=== PATIENT | female | born 1965 | race Caucasian/White ===

== ENCOUNTER → 2017-02-09 | Outpatient (CLI) | payer BC ==
[2017-02-13 17:04] LABS: HPV 16 Not Detected (NOTDET); HPV 18 Not Detected (NOTDET)
== END ==
LOC: MW.CHOBGYN 16:03
PROVIDERS: ATTEND Nurse Practitioner Women's Health
DX: Z12.4 Encounter for screening for malignant neoplasm of cervix (principal); R82.90 Unspecified abnormal findings in urine
CPT/HCPCS: 36415; 81001; 83001; 84443; 87624; G0145

== ENCOUNTER → 2017-02-10 | Outpatient (CLI) | payer BC | LOC: MW.CHOBGYN 09:03 | PROVIDERS: ATTEND Nurse Practitioner Women's Health | DX: N91.1 Secondary amenorrhea (principal) | CPT/HCPCS: 36415; 83002; 84146 ==

== ENCOUNTER → 2017-02-18 | Outpatient (CLI) | payer BC ==
--- NOTE | 2017-02-18 14:28 | US ---
EXAMINATION: Transvaginal pelvic ultrasound. HISTORY: Amenorrhea COMPARISON: None TECHNIQUE: Grayscale, color Doppler, spectral Doppler images obtained transvaginally. FINDINGS: The uterus appears normal in size, contour, and echogenicity without a focal uterine mass. Endometrial stripe thickness measures 9 mm, correlate for postmenopausal state. Both the left and right ovaries are normal in size, contour, and echogenicity demonstrating normal c olor and spectral Doppler flow. As a 2 cm cyst noted within the left ovary. No significant free pelv ic fluid. IMPRESSION: 1. Grossly unremarkable transvaginal pelvic ultrasound.
--- NOTE | 2017-02-18 16:08 | MY ---
EXAMINATION: Bilateral digital mammography utilizing CAD. HISTORY: Screening exam. Baseline. FINDINGS: Bilateral heterogeneously dense breast tissue. No suspicious calcifications, masses or architectural distortions. No pathologic appearing lymph nodes, no abnormal skin thickening or nip ple inversion. CAD highlighted regions appear normal at this time. IMPRESSION: BI-RADS category I - negative mammogram. Continued screening according to ACR-ACS gu idelines suggested. THE FALSE-NEGATIVE RATE OF MAMMOGRAM IS APPROXIMATELY 10%. MANAGEMENT OF A PALPABLE ABNORMALITY MUST BE BASED UPON CLINICAL GROUNDS. SENSITIVITY FOR DETECTION OF ABNORMALITIES IN DENSE BREASTS IS LOW. NOTE: A letter will be sent to the patient regarding findings. [facility] -- [place] [phone] - FAX [phone]
== END ==
LOC: MW.MAM 09:17
PROVIDERS: ATTEND Nurse Practitioner Women's Health
DX: Z12.31 Encounter for screening mammogram for malignant neoplasm of breast (principal); N91.1 Secondary amenorrhea
CPT/HCPCS: 76830; G0202

== ENCOUNTER → 2017-04-17 | Outpatient (CLI) | payer BC | LOC: MW.CHFP 08:36 | PROVIDERS: ATTEND Emergency Medicine | DX: R39.9 Unspecified symptoms and signs involving the genitourinary system (principal) | CPT/HCPCS: 81001; 87086 ==

== ENCOUNTER 2017-06-28 04:57 | Emergency (ER) | payer BC ==
[2017-06-28] MEDS ORDERED: Proparacaine 0.5% Ophth Soln 15 ML Bottle EYERT ONE (05:05)
--- NOTE | 2017-06-28 05:30 | EDM.PDOC ---
ED HPI GENERAL MEDICAL PROBLEM - General Chief Complaint: General Stated Complaint: RIGHT EYE PAIN Time Seen by Provider: 06/28/17 05:02 - History of Present Illness INITIAL COMMENTS - FREE TEXT/NARRATIVE: HISTORY AND PHYSICAL: History of present illness: The patient is a 51-year-old female who wears corrective lenses but not contact lenses and presents tonight after stating that at approximately 11 PM last evening, 6 hours ago, she was with her dog and the dog stretched its paws out and the rough part of the pad of the paw rubbed onto her right eye causing injury. Initially the patient had no tearing or drainage and she rinsed the eye out with water and it seemed to be okay so she went to sleep. She will this morning with severe pain and redness to the right eye and blurred vision. She has photophobia and there is no other injuries to the face no headache no nausea no vomiting. She denies any pain in the facial bones and has no other systemic complaints. Patient says she had a formal eye exam just a few months ago for her glasses. Please note that the patient never had any bleeding from her eye or any gross drainage other than clear tears. Review of systems: As per history of present illness and below otherwise all systems reviewed and negative. Past medical history: As per history of present illness and as reviewed below otherwise noncontributory. Surgical history: As per history of present illness and as reviewed below otherwise noncontributory. Social history: No reported history of drug or alcohol abuse. Family history: As per history of present illness and as reviewed below otherwise noncontributory. Physical exam: Gen.: Well-developed well-nourished female who is nontoxic but looks uncomfortable in the room with light and prefers to keep her right eye closed. Visual acuity is noted by me to be 20/20 in her left eye with correction and 20/ 260 with her right eye with correction. There is no visible facial swelling appreciated HEENT: Atraumatic, normocephalic, pupils reactive, and EOMs are intact, there is no facial bony tenderness or deformities, negative for conjunctival pallor or scleral icterus, mucous membranes moist, throat clear, neck supple, nontender , trachea midline. The right eye is very injected there is no gross drainage and no foreign bodies are appreciated. The conjunctiva are injected as well and there are clear tears. Fundus is difficult to evaluate due to patient's inability to tolerate the light. With fluoroscopy seen stain there is an irregularly-shaped oval corneal abrasion seen at 8 to 9:00 which is on the iris but also impedes on the pupillary area. There is no evidence of any scleral laceration or proptosis Lungs: Clear to auscultation, breath sounds equal bilaterally, chest nontender. Heart: S1S2, regular rate and rhythm no overt murmurs Abdomen: Deferred Pelvis: Deferred Genitourinary: Deferred. Rectal: Deferred. Extremities: Atraumatic, full range of motion. Neurovascular unremarkable. Neuro: Awake, alert, oriented. Cranial nerves II through XII unremarkable. Cerebellum unremarkable. Motor and sensory unremarkable throughout. Exam nonfocal. Diagnostics: Visual acuity with correction left eye 20/20 right eye 20/260, fluoroscopy seen stain Therapeutics: Proparacaine 0527: Case is discussed with her account services manager special education supervisor Dr. Chavez; he feels that that he is not concerned about the visual acuity with the corneal abrasion location. He does recommend antibiotic drops and/or ointment and follow-up with him in the clinic on Thursday. I advised the patient of this conversation and will also give her something for pain for home via [facility]. Impression: Right eye corneal abrasion Definitive disposition and diagnosis as appropriate pending reevaluation and review of above. 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: Psychiatric History: Reports: Anxiety - Infectious Disease History Infectious Disease History: Reports: Chicken Pox - Past Surgical History GI Surgical History: Reports: Cholecystectomy Musculoskeletal Surgical History: Reports: Knee Replacement Social & Family History - Family History Family Medical History: Noncontributory - Tobacco Use Smoking Status *Q: Current Every Day Smoker Years of Tobacco use: 30 Packs/Tins Daily: 0.5 - Caffeine Use Caffeine Use: Reports: Coffee Caffeine Use Comment: 2cups/day - Alcohol Use Days Per Week of Alcohol Use: 0 Number of Drinks Per Day: 0 Total Drinks Per Week: 0 - Recreational Drug Use Recreational Drug Use: No Drug Use in Last 12 Months: No ED ROS GENERAL - Review of Systems Review Of Systems: ROS reveals no pertinent complaints other than HPI. ED EXAM, GENERAL - Physical Exam Exam: See Below (See dictation) Course - Vital Signs Last Recorded V/S: Last Vital Signs Temp 36.1 C 06/28/17 05:01 Pulse 111 H 06/28/17 05:01 Resp 18 06/28/17 05:01 BP 130/71 06/28/17 05:01 Pulse Ox 96 06/28/17 05:01 - Orders/Labs/Meds Orders: Active Orders 24 hr Category Date Time Status Communication Order [RC] STAT Care 06/28/17 05:03 Active Meds: Medications Discontinued Medications Generic Name Dose Route Start Last Admin Trade Name Jaspreet PRN Reason Stop Dose Admin Proparacaine HCl 2 ml 06/28/17 05:05 Proparacaine 0.5% Ophth Soln EYERT 06/28/17 05:06 ONETIME ONE Departure - Departure Time of Disposition: 05:32 Disposition: Home, Self-Care 01 Condition: Good Clinical Impression: Corneal abrasion, right Qualifiers: Encounter type: initial encounter Qualified Code(s): S05.01XA - Injury of conjunctiva and corneal abrasion without foreign body, right eye, initial encounter - Discharge Information Forms: ED Department Discharge Additional Instructions: The following information is given to patients seen in the emergency department who are being discharged to home. This information is to outline your options for follow-up care. We provide all patients seen in our emergency department with a follow-up referral. The need for follow-up, as well as the timing and circumstances, are variable depending upon the specifics of your emergency department visit. If you don't have a primary care physician on staff, we will provide you with a referral. We always advise you to contact your personal physician following an emergency department visit to inform them of the circumstance of the visit and for follow-up with them and/or the need for any referrals to a consulting specialist. The emergency department will also refer you to a specialist when appropriate. This referral assures that you have the opportunity for followup care with a specialist. All of these measure are taken in an effort to provide you with optimal care, which includes your followup. Under all circumstances we always encourage you to contact your private physician who remains a resource for coordinating your care. When calling for followup care, please make the office aware that this follow-up is from your recent emergency room visit. If for any reason you are refused follow-up, please contact the [facility] emergency department at and ask to speak to the emergency department charge nurse. [facility]--ophthalmology department ( Dr Chavez , Dr Stephenson). [facility] [place] [address] Please call and follow-up with the account services manager on Thursday in the clinic as we discussed. Use tramadol that you have been prescribed this evening via [facility] or [id number] medications for the pain.Avoid bright light and rest the eye. Please apply ointment to the eye as directed and return to the ER as needed and as discussed - My Orders Last 24 Hours: My Active Orders 06/28/17 05:03 Communication Order [RC] STAT - Assessment/Plan Last 24 Hours: My Active Orders 06/28/17 05:03 Communication Order [RC] STAT
[2017-06-28] MEDS ORDERED: Tobramycin 0.3% Ophth Oint 3.5 GM Tube EYERT ONE (05:38)
[2017-06-28 06:00] VITALS: BP 108/64
== END 2017-06-28 05:55 | disposition home or self-care (01) ==
LOC: MW.ED 04:57
DX: S05.01XA Injury of conjunctiva and corneal abrasion without foreign body, right eye, initial encounter (principal); F17.210 Nicotine dependence, cigarettes, uncomplicated; Z96.659 Presence of unspecified artificial knee joint; Z88.5 Allergy status to narcotic agent; Z88.0 Allergy status to penicillin; Z90.49 Acquired absence of other specified parts of digestive tract; W54.8XXA Other contact with dog, initial encounter
CPT/HCPCS: 99283; A9270

== ENCOUNTER 2018-01-20 12:20 | Day surgery (SDC) | payer BC ==
[~2018-01-20 12:20] MED LIST: Lactated Ringers 1,000 ML IV SCH; Sodium Chloride 0.9% 10 ML Syringe FLUSH PRN; Sodium Chloride 0.9% 2.5 ML Syringe FLUSH PRN
[2018-01-20] MEDS ORDERED: Lidocaine 2% 5 ML SDV ONE (13:10)
[2018-01-20] MEDS ORDERED: Propofol 200 MG/20 ML SDV ONE ×2 (13:10→14:19)
[2018-01-20] MEDS ORDERED: Midazolam 1 MG/ML 2 ML SDV ONE (13:11)
[2018-01-20] MEDS ORDERED: fentaNYL 100 MCG/2 ML SDV ONE (13:11)
--- NOTE | 2018-01-20 13:18 | PCM.PREANE ---
Preanesthetic Assessment - Anesthesia/Transfusion/Family Hx Anesthesia History: Prior Anesthesia Without Reaction Other Type of Anesthesia Reaction Comment: "sister has hard time waking up" Family History of Anesthesia Reaction: No Transfusion History: No Prior Transfusion(s) Intubation History: Unknown - Review of Systems General: No Symptoms Pulmonary: No Symptoms Cardiovascular: No Symptoms Gastrointestinal: Abdominal Pain, Other (chronic reflux) Neurological: No Symptoms Other: Reports: None - Physical Assessment ASA Class: 2 Mental Status: Alert & Oriented x3 Airway Class: Mallampati = 2 Dentition: Reports: Normal Dentition Thyro-Mental Finger Breadths: 3 Mouth Opening Finger Breadths: 3 ROM/Head Extension: Full Lungs: Clear to Auscultation, Normal Respiratory Effort Cardiovascular: Regular Rate, Regular Rhythm - Allergies Allergies/Adverse Reactions: Allergies Allergy/AdvReac Type Severity Reaction Status Date / Time codeine Allergy Headache Verified 01/15/18 09:04 Penicillins Allergy Rash Verified 01/15/18 09:04 - Blood Blood Available: No - Anesthesia Plan Pre-Op Medication Ordered: None - Acknowledgements Anesthesia Type Planned: MAC Pt an Appropriate Candidate for the Planned Anesthesia: Yes Alternatives and Risks of Anesthesia Discussed w Pt/Guardian: Yes Pt/Guardian Understands and Agrees with Anesthesia Plan: Yes PreAnesthesia Questionnaire - Past Health History Medical/Surgical History: Denies Medical/Surgical History HEENT History: Reports: Other (See Below) Other HEENT History: wears glasses Gastrointestinal History: Reports: Gastritis, GERD Genitourinary History: Reports: Renal Calculus 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: Musculoskeletal History: Reports: Back Pain, Chronic Neurological History: Reports: Migraines, Vertigo Psychiatric History: Reports: Anxiety, Panic Attack Endocrine/Metabolic History: Reports: None Hematologic History: Reports: None Immunologic History: Reports: None Oncologic (Cancer) History: Reports: None Dermatologic History: Reports: None - Infectious Disease History Infectious Disease History: Reports: Chicken Pox - Past Surgical History Head Surgeries/Procedures: Reports: None GI Surgical History: Reports: Cholecystectomy, Other (See Below) Other GI Surgeries/Procedures: cauterization of hemorrhoids Female Surgical History: Reports: Other (See Below) Other Female Surgeries/Procedures: multiple laparoscopies for ovarian cysts Musculoskeletal Surgical History: Reports: Arthroscopic Knee, Knee Replacement Other Musculoskeletal Surgeries/Procedures:: rt knee replacement - SUBSTANCE USE Smoking Status *Q: Current Every Day Smoker (< 1ppd) Days Per Week of Alcohol Use: 0 Number of Drinks Per Day: 0 Total Drinks Per Week: 0 Recreational Drug Use History: No - HOME MEDS Home Medications: Home Meds ALPRAZolam [Xanax] 1 tab PO TID PRN 08/27/14 [History] Celecoxib 200 mg PO DAILY PRN 01/15/18 [History] Fluticasone Propionate [Flonase Allergy Relief] 1 - 2 spray NASBOTH ASDIRECTED PRN 01/15/18 [History] Pantoprazole Sodium 40 mg PO DAILY 01/15/18 [History] Sucralfate 1 gm PO QID 01/15/18 [History] - CURRENT (IN HOUSE) MEDS Current Meds: Current Medications Lactated Ringer's (Ringers, Lactated) 1,000 mls @ 125 mls/hr IV ASDIRECTED NANDO Last Admin: 01/20/18 12:45 Dose: 125 mls/hr Sodium Chloride (Saline Flush) 10 ml FLUSH ASDIRECTED PRN PRN Reason: Keep Vein Open Sodium Chloride (Saline Flush) 2.5 ml FLUSH ASDIRECTED PRN PRN Reason: Keep Vein Open Sodium Chloride (Saline Flush) 10 ml FLUSH ASDIRECTED PRN PRN Reason: Keep Vein Open Sodium Chloride (Saline Flush) 2.5 ml FLUSH ASDIRECTED PRN PRN Reason: Keep Vein Open Discontinued Medications Fentanyl (Sublimaze) Confirm Administered Dose 100 mcg .ROUTE .STK-MED ONE Stop: 01/20/18 13:12 Lidocaine (Xylocaine-Mpf 2%) Confirm Administered Dose 10 ml .ROUTE .STK-MED ONE Stop: 01/20/18 13:11 Midazolam HCl (Versed 1 Mg/Ml) Confirm Administered Dose 2 mg .ROUTE .STK-MED ONE Stop: 01/20/18 13:12 Propofol (Diprivan 20 Ml) Confirm Administered Dose 400 mg .ROUTE .STK-MED ONE Stop: 01/20/18 13:11
--- NOTE | 2018-01-20 14:46 | PCM.OPNOTE ---
- General Post-Op/Procedure Note Date of Surgery/Procedure: 01/20/18 Operative Procedure(s): Diagnostic EGD and colonoscopy Findings: Normal EGD, 1 trasnverse colon polyp, 3 sigmoid colon polyps, 3 rectal polyps Pre Op Diagnosis: Epigastric discomfort, screening colonoscopy Post-Op Diagnosis: normal egd, colon polyps Anesthesia Technique: MAC Primary Surgeon: Arelis Hightower Condition: Good
[2018-01-20 15:24] VITALS: BP 114/58
--- NOTE | 2018-01-20 16:11 | PCM.OPNOTE ---
- General Post-Op/Procedure Note Date of Surgery/Procedure: 01/20/18 Operative Procedure(s): Diagnostic EGD and colonoscopy Findings: Normal EGD, 1 transverse colon polyp, 5 descending colon polyps, 10 sigmoid colon polyps, 3 rectal polyps Pre Op Diagnosis: Anemia Post-Op Diagnosis: Normal EGD and colon polyps Anesthesia Technique: [facility] Primary Surgeon: Arelis Hightower Condition: Good Free Text/Narrative:: Intake & Output 01/20/18 01/20/18 01/20/18 06:59 14:59 22:59 Intake Total 750 200 Balance 750 200
--- NOTE | 2018-01-20 22:16 | OR ---
SURGEON: JOSSELIN EARL MD DATE OF PROCEDURE: 01/20/2018 PREOPERATIVE DIAGNOSIS: Epigastric abdominal pain, screening colonoscopy. POSTOPERATIVE DIAGNOSIS: Normal esophagogastroduodenoscopy, multiple colon polyps. PROCEDURE PERFORMED: Diagnostic EGD and colonoscopy. ANESTHESIA: MAC. INSTRUMENT USED: Olympus endoscope and colonoscope. EXTENT OF EXAM: To the second portion of duodenum, to the cecum. PREPARATION: Good. LIMITATIONS: None. INDICATION FOR EXAMINATION: The patient is a 52-year-old female who presents with epigastric pain refractory to PPI treatment. The patient has never had a colonoscopy. The decision was made to perform a diagnostic EGD and a screening colonoscopy. We discussed the procedure, expected perioperative course, and risks. The patient verbalized understanding and wishes to proceed. PROCEDURE IN DETAIL: The patient was brought into the endoscopy suite and placed in a left lateral decubitus position. A time-out was completed verifying the patient's name, age, date of , allergies, and procedure to be performed. A bite block was placed in the patient's mouth, and monitored anesthesia care was induced. Nasal cannula was used throughout the procedure to provide oxygen. After adequate sedation was achieved, a well lubricated endoscope was placed in the patient's mouth and advanced under direct visualization at the level of the second portion of duodenum. This appeared normal, and a photograph was taken. The scope was then fully withdrawn while examining the color, texture, anatomy, and integrity of the mucosa of the upper GI tract. The patient had no evidence of inflammation or ulceration in the duodenum or in the stomach. A photograph was taken of the pylorus as well as the GE junction in a retroflexed position within the stomach. These both appeared normal. The scope was then brought into the distal esophagus, and a photograph taken of the GE junction, which appeared normal. There was no evidence of esophagitis. The remainder of the esophageal mucosa appeared normal. The scope was removed, and this portion of procedure was terminated. A digital rectal exam was performed. This exam was within normal limits. A well lubricated colonoscope was inserted in the rectum and advanced under direct visualization of the level of the cecum. The cecum was identified by both visual and anatomic landmarks. A photograph was taken of the cecal cap, but I was unable to retroflex the scope within the cecum. The scope was then fully withdrawn while examining the color, texture, anatomy, and integrity of the mucosa from the cecum to the anal canal. The patient was found to have multiple small 2 to 3 mm polyps throughout the colon. There was one transverse colon polyp, three sigmoid colon polyps, and three rectal polyps. These were removed using a cold biopsy forceps as well as a cold snare. The scope was then brought in the rectum and retroflexed to allow visualization of the anal canal opening. This appeared normal and a photograph was taken. The scope was then straightened out and removed from the patient. The cecum to anus time was 20 minutes. The patient tolerated the procedure well and was taken to PACU in stable condition. ENDOSCOPIC DIAGNOSES: 1. Normal esophagogastroduodenoscopy. 2. Multiple colon polyps as described above. RECOMMENDATIONS: Follow up in clinic in 2 weeks. LOLY OWENS /[id number]
== END 2018-01-20 15:15 | disposition home or self-care (01) ==
LOC: MW.SDS 12:20
PROVIDERS: ATTEND Surgery
DX: Z12.11 Encounter for screening for malignant neoplasm of colon (principal); D12.3 Benign neoplasm of transverse colon; K62.1 Rectal polyp; K63.5 Polyp of colon; K21.9 Gastro-esophageal reflux disease without esophagitis; Z88.0 Allergy status to penicillin; Z88.8 Allergy status to other drugs, medicaments and biological substances; Z90.49 Acquired absence of other specified parts of digestive tract; Z79.899 Other long term (current) drug therapy; F17.210 Nicotine dependence, cigarettes, uncomplicated
CPT/HCPCS: 43239; 45380; 45385; J2250; J3010; J7120; 88305; 88312; J2704

== ENCOUNTER 2021-08-23 06:37 | Day surgery (SDC) | payer BC ==
[~2021-08-23 06:37] MED LIST changes: +Clindamycin Phosphate in D5W 900 MG in Premix Bag 1 BAG IV ONE; -Sodium Chloride 0.9% 10 ML Syringe FLUSH PRN; -Sodium Chloride 0.9% 2.5 ML Syringe FLUSH PRN
[2021-08-23] MEDS ORDERED: Albuterol 0.083% 2.5 MG/3 ML Neb Soln NEB PRN (06:51)
[2021-08-23] MEDS ORDERED: Naloxone 0.4 MG/ML SDV IVPUSH PRN (06:51)
[2021-08-23] MEDS ORDERED: HYDROmorphone 1 MG/ML Syringe IVPUSH PRN (06:51)
[2021-08-23] MEDS ORDERED: fentaNYL 100 MCG/2 ML SDV IVPUSH PRN (06:51)
[2021-08-23] MEDS ORDERED: Metoclopramide 10 MG/2 ML SDV IVPUSH PRN (06:51)
[2021-08-23] MEDS ORDERED: Ondansetron 4 MG/2 ML SDV IVPUSH PRN (06:51)
[2021-08-23] MEDS ORDERED: Morphine 2 MG/ML SYRINGE IVPUSH PRN (06:51)
--- NOTE | 2021-08-23 07:02 | PCM.PREANE ---
Preanesthetic Assessment - Anesthesia/Transfusion/Family Hx Anesthesia History: Prior Anesthesia Without Reaction Other Type of Anesthesia Reaction Comment: sister had hard time coming out of anesthesia Family History of Anesthesia Reaction: No Transfusion History: No Prior Transfusion(s) Intubation History: Unknown - Review of Systems General: No Symptoms Pulmonary: No Symptoms Cardiovascular: No Symptoms Gastrointestinal: No Symptoms Neurological: No Symptoms Other: Reports: None - Physical Assessment NPO Status Date: 08/23/21 NPO Status Time: 00:00 Height: 5 ft 5.5 in Weight: 155 lb ASA Class: 2 Mental Status: Alert & Oriented x3 Airway Class: Mallampati = 1 Dentition: Reports: Normal Dentition Thyro-Mental Finger Breadths: 3 Mouth Opening Finger Breadths: 3 ROM/Head Extension: Full Lungs: Clear to Auscultation, Normal Respiratory Effort Cardiovascular: Regular Rate, Regular Rhythm - Allergies Allergies/Adverse Reactions: Allergies Allergy/AdvReac Type Severity Reaction Status Date / Time codeine Allergy Headache Verified 08/20/21 09:20 Penicillins Allergy Rash Verified 08/20/21 09:20 - Anesthesia Plan Pre-Op Medication Ordered: Other - Acknowledgements Pt an Appropriate Candidate for the Planned Anesthesia: Yes Alternatives and Risks of Anesthesia Discussed w Pt/Guardian: Yes Pt/Guardian Understands and Agrees with Anesthesia Plan: Yes PreAnesthesia Questionnaire - Past Health History Medical/Surgical History: Denies Medical/Surgical History HEENT History: Reports: Other (See Below) Other HEENT History: wears glasses/contacts Cardiovascular History: Reports: None Respiratory History: Reports: None Gastrointestinal History: Reports: Colon Polyp, Gastritis, GERD Genitourinary History: Reports: Renal Calculus 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: Musculoskeletal History: Reports: Arthritis Neurological History: Reports: Vertigo Other Neuro History: hx benign paroxysmal positional vertigo Psychiatric History: Reports: Anxiety, Depression, Panic Attack Endocrine/Metabolic History: Reports: None Hematologic History: Reports: None Immunologic History: Reports: None Oncologic (Cancer) History: Reports: None Dermatologic History: Reports: None - Infectious Disease History Infectious Disease History: Reports: Chicken Pox - Past Surgical History Head Surgeries/Procedures: Reports: None HEENT Surgical History: Reports: None Cardiovascular Surgical History: Reports: None Respiratory Surgical History: Reports: None GI Surgical History: Reports: Cholecystectomy, Colonoscopy, Other (See Below) Other GI Surgeries/Procedures: cauterization of hemorrhoids Female Surgical History: Reports: Other (See Below) Other Female Surgeries/Procedures: multiple laparoscopies for ovarian cysts Endocrine Surgical History: Reports: None Neurological Surgical History: Reports: None Musculoskeletal Surgical History: Reports: Arthroscopic Knee, Knee Replacement, Shoulder Surgery Other Musculoskeletal Surgeries/Procedures:: rt knee replacement, right shoulder arthroscopy, multiple right knee arthroscopies Oncologic Surgical History: Reports: None Dermatological Surgical History: Reports: None - SUBSTANCE USE Tobacco Use Status *Q: Former Tobacco User Tobacco Use Within Last Twelve Months: No - HOME MEDS Home Medications: Home Meds ALPRAZolam [Xanax] 1 tab PO TID PRN 08/27/14 [History] Escitalopram [Lexapro] 10 mg PO DAILY 08/20/21 [History] Nicotine Polacrilex [Nicotine Gum] 1 dose CHEW ASDIRECTED PRN 08/20/21 [History] - CURRENT (IN HOUSE) MEDS Current Meds: Current Medications Lactated Ringer's (Ringers, Lactated) 1,000 mls @ 125 mls/hr IV ASDIRECTED NANDO Discontinued Medications Clindamycin Phosphate 900 mg/ (Premix) 50 mls @ 100 mls/hr IV ONETIME ONE Stop: 08/23/21 06:38
[2021-08-23] MEDS ORDERED: Scopolamine 1.5 MG Transdermal Patch ONE (07:25)
[2021-08-23] MEDS ORDERED: Lidocaine 1% with EPINEPHrine 1:100,000 20 ML MDV ONE (07:26)
[2021-08-23] MEDS ORDERED: Bupivacaine 0.25% 10 ML SDV ONE (07:26)
[2021-08-23] MEDS ORDERED: Neomycin/Polymyxin B Bladder Irrigation 1 ML Amp ONE (07:27)
[2021-08-23] MEDS ORDERED: Octyl 2-Cyanoacrylate 1 Tube ONE (07:27)
[2021-08-23] MEDS ORDERED: Ondansetron 4 MG/2 ML SDV ONE (07:28)
[2021-08-23] MEDS ORDERED: Propofol 200 MG/20 ML SDV ONE ×2 (07:28→08:23)
[2021-08-23] MEDS ORDERED: Lidocaine 2% 5 ML SDV ONE (07:28)
[2021-08-23] MEDS ORDERED: fentaNYL 100 MCG/2 ML SDV ONE (07:28)
[2021-08-23] MEDS ORDERED: Midazolam 1 MG/ML 2 ML SDV ONE (07:28)
[2021-08-23] MEDS ORDERED: Sodium Chloride 0.9% 2.5 ML Syringe FLUSH PRN (08:00)
[2021-08-23] MEDS ORDERED: ceFAZolin 1 GM Vial IM ONE (08:00)
[2021-08-23] MEDS ORDERED: Sodium Chloride 0.9% 10 ML Syringe FLUSH PRN (08:00)
[2021-08-23] MEDS ORDERED: Sodium Chloride 0.9% 10 ML SDV IV PRN (08:00)
[2021-08-23] MEDS ORDERED: ceFAZolin 1 GM Vial ONE (08:10)
[2021-08-23] MEDS ORDERED: Ketorolac 30 MG/ML SDV ONE (08:20)
--- NOTE | 2021-08-23 08:59 | PCM.OPNOTE ---
- General Post-Op/Procedure Note Date of Surgery/Procedure: 08/23/21 Operative Procedure(s): TOVT Findings: Urethral hypermobility Pre Op Diagnosis: Stress urinary incontinence. Urethral hypermobility Post-Op Diagnosis: Same Anesthesia Technique: Local, MAC Primary Surgeon: Liliya Medrano Fluid Replacement, Intraop: 600 EBL in mLs: 25 Complications: none known Condition: Good Free Text/Narrative:: Dictation [id number]
--- NOTE | 2021-08-23 09:00 | PCM48HPAN ---
Post Anesthesia Note - EVALUATION WITHIN 48HRS OF ANESTHETIC Vital Signs in Normal Range: Yes Patient Participated in Evaluation: Yes Respiratory Function Stable: Yes Airway Patent: Yes Cardiovascular Function Stable: Yes Hydration Status Stable: Yes Pain Control Satisfactory: Yes Nausea and Vomiting Control Satisfactory: Yes Mental Status Recovered: Yes Vital Signs: Last Vital Signs Temp 96.8 F L 08/23/21 06:50 Pulse 87 08/23/21 06:50 Resp 15 08/23/21 06:50 BP 125/73 08/23/21 06:50 Pulse Ox 97 08/23/21 06:50
--- NOTE | 2021-08-23 09:00 | PCM.POSTAN ---
POST ANESTHESIA ASSESSMENT - MENTAL STATUS Mental Status: Alert, Oriented - VITAL SIGNS Vital Signs: Last Vital Signs Temp 96.8 F L 08/23/21 06:50 Pulse 87 08/23/21 06:50 Resp 15 08/23/21 06:50 BP 125/73 08/23/21 06:50 Pulse Ox 97 08/23/21 06:50 - RESPIRATORY Respiratory Status: Respiratory Rate WNL, Airway Patent, O2 Saturation Stable - CARDIOVASCULAR CV Status: Pulse Rate WNL, Blood Pressure Stable - GASTROINTESTINAL GI Status: No Symptoms - POST OP HYDRATION Hydration Status: Adequate & Stable
[2021-08-23 11:03] VITALS: BP 104/55; PULSE 57
--- NOTE | 2021-08-23 15:53 | OR ---
SURGEON: Liliya Medrano M.D. DATE OF PROCEDURE: 08/23/2021 PREOPERATIVE DIAGNOSES: 1. Stress urinary incontinence. 2. Urethral hypermobility. POSTOPERATIVE DIAGNOSES: 1. Stress urinary incontinence. 2. Urethral hypermobility. PROCEDURE: Transobturator vaginal taping with Obtryx system. ANESTHESIA: MAC with local. ESTIMATED BLOOD LOSS: 25 mL. FLUIDS: 600 mL of crystalloid. COMPLICATIONS: None known. FINDINGS: Urethral hypermobility. DISPOSITION: The patient to PACU, stable. PROCEDURE IN DETAIL: She is a 55-year-old female who has ongoing difficulties with urinary incontinence. Cystometry indicates that she does have stress urinary incontinence with urethral hypermobility, is a good candidate for mid-urethral sling. She would like to proceed with surgical intervention. Risks of procedure have been discussed with her. Proper consent was obtained. The patient was taken to the operating room where she underwent MAC anesthetic and then was placed in modified dorsal lithotomy position, was prepped and draped in usual sterile fashion. Time-out was performed. The adductor longus muscle tendon was palpated on either side and directly below this in line with the clitoral ely, notching along the pubis was noted and marked with a marking pen. This region was then prepped with 0.25% Marcaine, 1% lidocaine with epinephrine diluted in saline. Please see nurse's notes for total amount of local dispensed during the procedure. This region was prepped following behind the pubic bone and then grasping the vaginal mucosa directly below the urethral meatus in the midline. This region was also prepped with local anesthetic as well as the periurethral spaces. Using 11 blade scalpel, the skin incisions were made along the groin area that had been marked as well as taking it with a blade scalpel to create a 1.5 cm midline sagittal incision. Either edge of the vaginal incision was now grasped with an Allis clamp, and using Metzenbaum scissors, periurethral spaces were further dissected until able to palpate the medial aspect of the pubic bone on either side. These were then gently bluntly further dissected while palpating the medial aspect of the pubic bone. The left Obtryx introducer was now placed into the left groin incision gently perforating the transobturator membrane and muscle rotating behind the pubic bone and exiting through the vaginal incision on the left side. The vaginal sulcus was inspected and found to be intact. The tape was attached and removed through the point of entry. In a similar fashion, it was performed on the patient's right side. The optic introducer was trimmed from the tape on either side once the sulcus was seen to be intact on both sides. The overlying sheaths were now irrigated with Neosporin saline solution. The tape was tented down in the midline while the overlying sheaths were removed after trimming the midline stabilizer of the tape. The tape was now gently tented downward in the midline while Wilcox catheter was replaced. The periurethral region was now inspected. The urethra was found to be intact. The bladder was now backfilled with 240 mL of normal saline and the Wilcox catheter was once again removed. The Metzenbaum scissors were now removed from tenting the tape down and with Valsalva maneuvering gently tightened the tape until leaking was not evident. At this point, was able to trim the tape edges at either side of the groin incision and reapproximated these incisions with Dermabond as well as reapproximated the vaginal incision using 3-0 Vicryl in continuous running locked fashion. Once again, vaginal sulci were inspected and found to be intact. Hemostasis appeared evident. The Wilcox catheter was now replaced where the patient will go to PACU and undergo voiding trial before going home today. Hemostasis appeared evident. Sponge, instrument, and needle counts were correct x2. The patient tolerated the procedure well overall. She will go to PACU in stable condition. ODALYS / GRACIELA /[id number] IRIS
== END 2021-08-23 10:10 | disposition home or self-care (01) ==
LOC: MW.SDS 06:37
PROVIDERS: ATTEND Obstetrics & Gynecology
DX: N39.3 Stress incontinence (female) (male) (principal); N36.41 Hypermobility of urethra; Z79.899 Other long term (current) drug therapy; Z90.49 Acquired absence of other specified parts of digestive tract; Z98.890 Other specified postprocedural states; Z87.891 Personal history of nicotine dependence; Z88.0 Allergy status to penicillin; Z88.5 Allergy status to narcotic agent
CPT/HCPCS: 00860; 36415; 84702; 84703; 85027; A9270-GY; C1771; J0131; J0690; J1885; J2250; J2405; J2704; J3010; J3490; J7120

== ENCOUNTER 2021-09-10 10:45 | Day surgery (SDC) | payer BC ==
[~2021-09-10 10:45] MED LIST changes: -Clindamycin Phosphate in D5W 900 MG in Premix Bag 1 BAG IV ONE; +Sodium Chloride 0.9% 10 ML SDV IV PRN; +Sodium Chloride 0.9% 10 ML Syringe FLUSH PRN; +Sodium Chloride 0.9% 2.5 ML Syringe FLUSH PRN
[2021-09-10] MEDS ORDERED: fentaNYL 100 MCG/2 ML SDV ONE (11:02)
[2021-09-10] MEDS ORDERED: Propofol 200 MG/20 ML SDV ONE (11:02)
--- NOTE | 2021-09-10 11:19 | PCM.PREANE ---
Preanesthetic Assessment - Anesthesia/Transfusion/Family Hx Anesthesia History: Prior Anesthesia Without Reaction Other Type of Anesthesia Reaction Comment: sister had hard time coming out of anesthesia Transfusion History: No Prior Transfusion(s) Intubation History: Unknown - Review of Systems General: No Symptoms Pulmonary: No Symptoms Cardiovascular: No Symptoms Gastrointestinal: No Symptoms Neurological: No Symptoms Other: Reports: None - Physical Assessment NPO Status Date: 09/10/21 NPO Status Time: 00:00 Vital Signs: Last Vital Signs Temp 97.0 F 09/10/21 10:53 Pulse 85 09/10/21 10:53 Resp 16 09/10/21 10:53 BP 111/65 09/10/21 10:53 Pulse Ox 97 09/10/21 10:53 Height: 5 ft 5 in Weight: 155 lb ASA Class: 2 Mental Status: Alert & Oriented x3 Airway Class: Mallampati = 1 Dentition: Reports: Normal Dentition Thyro-Mental Finger Breadths: 3 Mouth Opening Finger Breadths: 3 ROM/Head Extension: Full Lungs: Clear to Auscultation, Normal Respiratory Effort Cardiovascular: Regular Rate, Regular Rhythm - Allergies Allergies/Adverse Reactions: Allergies Allergy/AdvReac Type Severity Reaction Status Date / Time codeine Allergy Headache Verified 09/04/21 14:31 Penicillins Allergy Rash Verified 09/04/21 14:31 - Acknowledgements Anesthesia Type Planned: General Anesthesia Pt an Appropriate Candidate for the Planned Anesthesia: Yes Alternatives and Risks of Anesthesia Discussed w Pt/Guardian: Yes Pt/Guardian Understands and Agrees with Anesthesia Plan: Yes PreAnesthesia Questionnaire - Past Health History Medical/Surgical History: Denies Medical/Surgical History HEENT History: Reports: Other (See Below) Other HEENT History: wears glasses/contacts Cardiovascular History: Reports: None Respiratory History: Reports: None Gastrointestinal History: Reports: Colon Polyp, Gastritis, GERD Genitourinary History: Reports: Renal Calculus 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: Musculoskeletal History: Reports: Arthritis Neurological History: Reports: Vertigo Other Neuro History: hx benign paroxysmal positional vertigo Psychiatric History: Reports: Anxiety, Depression, Panic Attack Endocrine/Metabolic History: Reports: None Hematologic History: Reports: None Immunologic History: Reports: None Oncologic (Cancer) History: Reports: None Dermatologic History: Reports: None - Infectious Disease History Infectious Disease History: Reports: Chicken Pox - Past Surgical History Other Female Surgeries/Procedures: multiple laparoscopies for ovarian cysts - SUBSTANCE USE Tobacco Use Within Last Twelve Months: Pipe Recreational Drug Use History: No - HOME MEDS Home Medications: Home Meds ALPRAZolam [Xanax] 1 mg PO TID PRN 08/27/14 [History] Escitalopram [Lexapro] 10 mg PO DAILY 08/20/21 [History] Pantoprazole Sodium [Protonix] 40 mg PO DAILY PRN 09/04/21 [History] Sucralfate [Carafate] 1 gm PO ASDIRECTED PRN 09/04/21 [History] - CURRENT (IN HOUSE) MEDS Current Meds: Current Medications Lactated Ringer's (Ringers, Lactated) 1,000 mls @ 125 mls/hr IV ASDIRECTED NANDO Last Admin: 09/10/21 11:00 Dose: 125 mls/hr Documented by: Sodium Chloride (Sodium Chloride 0.9% 10 Ml Syringe) 10 ml FLUSH ASDIRECTED PRN PRN Reason: Keep Vein Open Sodium Chloride (Sodium Chloride 0.9% 2.5 Ml Syringe) 2.5 ml FLUSH ASDIRECTED PRN PRN Reason: Keep Vein Open Sodium Chloride (Sodium Chloride 0.9% 10 Ml Syringe) 10 ml FLUSH ASDIRECTED PRN PRN Reason: Keep Vein Open Sodium Chloride (Sodium Chloride 0.9% 2.5 Ml Syringe) 2.5 ml FLUSH ASDIRECTED PRN PRN Reason: Keep Vein Open Sodium Chloride (Sodium Chloride 0.9% 10 Ml Sdv) 10 ml IV ASDIRECTED PRN PRN Reason: IV Use Discontinued Medications Fentanyl (Fentanyl 100 Mcg/2 Ml Sdv) Confirm Administered Dose 100 mcg .ROUTE .STK-MED ONE Stop: 09/10/21 11:03 Lidocaine HCl (Lidocaine 1% 5 Ml Sdv) Confirm Administered Dose 5 ml .ROUTE .STK-MED ONE Stop: 09/10/21 11:03 Propofol (Propofol 200 Mg/20 Ml Sdv) Confirm Administered Dose 400 mg .ROUTE .STK-MED ONE Stop: 09/10/21 11:03
[2021-09-10] MEDS ORDERED: Sodium Chloride 0.9% 20 ML ONE (11:36)
[2021-09-10] MEDS ORDERED: ePHEDrine 50 MG/ML SDV ONE (11:36)
--- NOTE | 2021-09-10 12:37 | PCM.POSTAN ---
POST ANESTHESIA ASSESSMENT - MENTAL STATUS Mental Status: Alert, Oriented - VITAL SIGNS Vital Signs: Last Vital Signs Temp 97.2 F 09/10/21 12:10 Pulse 69 09/10/21 12:20 Resp 13 09/10/21 12:20 BP 119/69 09/10/21 12:20 Pulse Ox 97 09/10/21 12:20 - RESPIRATORY Respiratory Status: Respiratory Rate WNL, Airway Patent, O2 Saturation Stable - CARDIOVASCULAR CV Status: Pulse Rate WNL, Blood Pressure Stable - GASTROINTESTINAL GI Status: No Symptoms - POST OP HYDRATION Hydration Status: Adequate & Stable
--- NOTE | 2021-09-10 12:37 | PCM48HPAN ---
Post Anesthesia Note - EVALUATION WITHIN 48HRS OF ANESTHETIC Vital Signs in Normal Range: Yes Patient Participated in Evaluation: Yes Respiratory Function Stable: Yes Airway Patent: Yes Cardiovascular Function Stable: Yes Hydration Status Stable: Yes Pain Control Satisfactory: Yes Nausea and Vomiting Control Satisfactory: Yes Mental Status Recovered: Yes Vital Signs: Last Vital Signs Temp 97.2 F 09/10/21 12:10 Pulse 69 09/10/21 12:20 Resp 13 09/10/21 12:20 BP 119/69 09/10/21 12:20 Pulse Ox 97 09/10/21 12:20
[2021-09-10 12:38] VITALS: BP 131/67; PULSE 63
--- NOTE | 2021-09-10 13:45 | PCM.OPNOTE ---
- General Post-Op/Procedure Note Date of Surgery/Procedure: 09/10/21 Operative Procedure(s): Diagnostic colonoscopy Findings: Diverticulosis, ascending colon polyp, transverse colon polyp x 2, rectal and sigmoid biopsies. Pre Op Diagnosis: Change in bowel habits Post-Op Diagnosis: Ascending colon polyp, transverse colon polyp x 2, diverticulosis [place] [facility] [place] Surgeon: Arelis Hightower Condition: Stable Free Text/Narrative:: Intake & Output 09/09/21 09/10/21 09/10/21 22:59 06:59 14:59 Intake Total 1050 Balance 1050
--- NOTE | 2021-09-10 15:39 | OR ---
SURGEON: JOSSELIN EARL MD DATE OF PROCEDURE: 09/10/2021 PREOPERATIVE DIAGNOSIS: Change in bowel habits. POSTOPERATIVE DIAGNOSES: 1. Diverticulosis. 2. Ascending colon polyp. 3. Transverse colon polyp x2. PROCEDURE PERFORMED: Diagnostic colonoscopy with biopsies and polypectomy. ANESTHESIA: MAC. INSTRUMENT USED: Olympus colonoscope. EXTENT OF THE EXAM: To the cecum. PREPARATION: Good. LIMITATIONS: None. INDICATIONS FOR EXAMINATION: The patient is a 55-year-old female who came to my office with changes in her bowel habits. The decision was made to proceed with diagnostic colonoscopy. I explained the procedure, expected perioperative course, and the risks. She verbalized understanding and wishes to proceed. PROCEDURE IN DETAIL: The patient was brought to the endoscopy suite and placed in the left lateral decubitus position. A time-out was completed verifying the patient's name, age, date of , allergies, and procedure to be performed. Monitored anesthesia care was induced and continuous oxygen was provided via nasal cannula throughout the procedure. After adequate sedation was achieved, a digital rectal exam was performed. The patient did have redundant hemorrhoidal skin tags, but there was no evidence of enlarged prolapsed hemorrhoids internally. A well-lubricated colonoscope was inserted into the rectum and advanced under direct visualization to the level of the cecum. The cecum was identified by both visual and anatomic landmarks. A photograph was taken of the cecal cap as well as with the scope retroflexed within the cecum. The scope was then fully withdrawn while examining the color, texture, anatomy, and integrity of the mucosa from the cecum to the anal canal. Upon retroflexing the scope, the patient was noted to have a flat sessile polypoid-looking colon polyp. This was removed in piecemeal fashion using a cold biopsy forceps. The scope was straightened out and I was able to resect even more of the atypical appearing tissue. Given its size and the piecemeal removal of it, I injected ink for identification in the future of this polyp. It was sent to Pathology labeled as ascending colon polyp. The patient had two smaller but similar appearing lesions in the transverse colon, one was in the proximal transverse and one was in the distal transverse colon. These were removed in piecemeal fashion using cold biopsy forceps as well. Since these were smaller and more easily resected, I did not ink these. The patient did have diverticulosis within the sigmoid colon. Random biopsies were taken of the sigmoid colon and rectum and sent for histologic review. The scope was retroflexed within the rectum to allow visualization of the anal canal opening. This appeared normal and a photograph was taken. The scope was straightened out and fully withdrawn. The cecum to anus time was 36 minutes. The patient tolerated the procedure well and was transferred to the PACU in stable condition. ENDOSCOPIC DIAGNOSES: 1. Diverticulosis. 2. Ascending colon polyp. 3. Transverse colon polyp x2. RECOMMENDATION: Follow up in clinic in two weeks. LOLY OWENS /[id number]
== END 2021-09-10 12:45 | disposition home or self-care (01) ==
LOC: MW.SDS 10:45
PROVIDERS: ATTEND Surgery
DX: D12.2 Benign neoplasm of ascending colon (principal); D12.3 Benign neoplasm of transverse colon; K57.30 Diverticulosis of large intestine without perforation or abscess without bleeding; K64.9 Unspecified hemorrhoids; F41.9 Anxiety disorder, unspecified; K21.9 Gastro-esophageal reflux disease without esophagitis; Z98.890 Other specified postprocedural states; Z88.5 Allergy status to narcotic agent; Z88.0 Allergy status to penicillin; Z79.899 Other long term (current) drug therapy
CPT/HCPCS: 45380; 45381; 88305; J2704; J3010; J7120; 00811

== ENCOUNTER 2024-04-01 13:48 | Emergency (ER) | payer BC ==
[2024-04-01 14:01] VITALS: BP 121/66; PULSE 88
== END 2024-04-01 14:08 | disposition home or self-care (01) ==
LOC: MW.ED 13:48
DX: K02.9 Dental caries, unspecified (principal); K21.9 Gastro-esophageal reflux disease without esophagitis; Z88.5 Allergy status to narcotic agent; Z88.0 Allergy status to penicillin; Z79.899 Other long term (current) drug therapy; Z75.8 Other problems related to medical facilities and other health care
CPT/HCPCS: 99283

== ENCOUNTER 2025-09-19 07:30 | Day surgery (SDC) | payer BC ==
[~2025-09-19 07:30] MED LIST changes: -Lactated Ringers 1,000 ML IV SCH; +Propofol 200 MG/20 ML SDV ONE; -Sodium Chloride 0.9% 10 ML SDV IV PRN
[2025-09-19] MEDS: Lactated Ringers 1,000 ML IV SCH (08:08)
[2025-09-19] MEDS ORDERED: Propofol 200 MG/20 ML SDV ONE (09:10)
[2025-09-19 12:10] VITALS: BP 102/70; PULSE 82
== END 2025-09-19 10:03 | disposition home or self-care (01) ==
LOC: MW.SDS 07:30
PROVIDERS: ATTEND Surgery
DX: Z12.11 Encounter for screening for malignant neoplasm of colon (principal); D12.3 Benign neoplasm of transverse colon; K63.89 Other specified diseases of intestine; K57.30 Diverticulosis of large intestine without perforation or abscess without bleeding; F17.210 Nicotine dependence, cigarettes, uncomplicated; Z88.5 Allergy status to narcotic agent; Z88.0 Allergy status to penicillin; Z79.01 Long term (current) use of anticoagulants; Z79.899 Other long term (current) drug therapy; Z86.0101 Personal history of adenomatous and serrated colon polyps
CPT/HCPCS: 45385; J2003; J2704; J7120; 00811